=== PATIENT | male | born 1955 | race Caucasian/White ===

== ENCOUNTER 2023-02-07 02:18 | Emergency (ER) | payer MEDICARE, OTHER ==
[2023-02-07] MEDS ORDERED: MORPHINE 2 MG/ML CARPUJECT IVP STA (02:23)
--- NOTE | 2023-02-07 04:33 | ED Physician Documentation ---
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 Patient states that he has intermittent bouts of diarrhea and he was attempting to get out of bed to use the restroom, however he got out of bed too quickly and subsequently fell on the ground, landing on his buttocks. Denies hitting his head, denies loss of consciousness. Patient complained of significant lumbar back pain and 911 was called. Patient was placed on a backboard by EMS staff and c-collar was applied. On arrival patient denied head, neck, thoracic pain. C-collar removed. Review of Systems Constitutional: denies: Fever, Chills Cardiac: denies: Chest pain / pressure, Palpitations, Calf pain Respiratory: denies: Dyspnea, Cough, Wheezing GI: reports: Diarrhea (chronic). denies: Abdominal Pain, Nausea, Vomiting Musculoskeletal: reports: Back pain. denies: Neck pain, Extremity pain, Joint pain, Extremity swelling Neurologic: denies: Generalized weakness, Focal weakness, Numbness, Syncope, Headache, Head injury PD PAST MEDICAL HISTORY - Allergies Allergies/Adverse Reactions: Allergies Allergy/AdvReac Type Severity Reaction Status Date / Time baclofen Allergy Unknown Verified 02/07/23 02:27 PD ED PE NORMAL - Vitals Vital signs reviewed: Yes - General General: Alert and oriented X 3, No acute distress, Well developed/nourished, Other (frail) - HEENT HEENT: Atraumatic, PERRL - Neck Neck: Supple, no meningeal sign, No bony TTP, C-Spine cleared by NEXUS criteria - Cardiac Cardiac: RRR, Strong equal pulses - Respiratory Respiratory: No respiratory distress, Clear bilaterally - Abdomen Abdomen: Soft, Non tender, Non distended - Back Back: No CVA TTP, Other (Lumbar midline tenderness) - Derm Derm: Normal color, Warm and dry, No rash - Extremities Extremities: No deformity, No tenderness to palpate - Neuro Neuro: Alert and oriented X 3, 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 Patient does have previous history of spinal fusion in his lumbar back. Patient states that he was about to have an episode of diarrhea, this is chronic for the patient and not a new issue for him. Patient was removed from backboard and c-collar cleared by myself, c-collar subsequently removed. CT imaging negative for acute findings. Patient's pain is well controlled. Patient was informed of CT results, he is relieved to know that there are no fra ctures and his hardware is intact. He called his for transport, who arrived to take him home in stable condition. Prior to leaving the emergency department patient asked what could possibly be done for his chronic intermittent diarrhea. I recommended Imodium, however patient stated that Imodium does not help him and his primary care doctor seems to be at a loss for why his diarrhea cannot be controlled. I recommended that the patient talk to his primary care doctor about potentially being referred to a route specialist. Departure - Departure Disposition: 01 Home, Self Care Clinical Impression: Lumbar pain Fall from bed Qualifiers: Encounter type: initial encounter Qualified Code(s): W06.XXXA - Fall from bed, initial encounter Condition: Stable Instructions: ED Low Back Pain Injury Comments: talk to your primary care doctor about possibly seeing a GI doctor for your recurrent diarrhea Forms: PCP List
[2023-02-07 04:43] VITALS: BP 164/84; O2SAT 99
--- NOTE | 2023-02-07 09:20 | CT Report ---
PROCEDURE: LUMBAR SPINE WO INDICATIONS: FALL OUT OF BED/LUMBAR PAIN TECHNIQUE: Noncontrast 3 mm thick sections acquired from the T12 level to the sacrum. Sagittal and coronal refo rmats were constructed. For radiation dose reduction, the following was used: automated exposure co ntrol, adjustment of mA and/or kV according to patient size. COMPARISON: None. FINDINGS: Image quality: There is limited visualization of the spine secondary to artifact from fusion hardwar e. Multilevel foraminal narrowing is present most severe at L2-3, L4-5, L5-S1. Facet and ligamentum f lavum arthropathy are present. Bones: There is posterior fusion from L1 through S2. Hardware is intact without evidence of hardware fracture or periprosthetic lucency to suggest loosening. Intervertebral spacer/prosthetic discs are present L3-4, L4-5 and L5-S1. There is 4 mm retrolisthesis of L5 on S1. Secondary to retrolisthesis, 4 mm of the anterior aspect of the prosthetic discs at L5-S1 are anterior to the inferior endplate of L5. Multilevel scattered disc bulges are present. Soft tissues: No retroperitoneal masses or hematomas. Visualized aorta is normal in caliber. Diver ticulosis. IMPRESSION: Multilevel fusion appearing intact. No visualized osseous fractures. Multilevel degenerative changes. The above findings are concordant with preliminary report. Reviewed by: Leonor Faith MD on 02/07/2023 9:19 AM PDT Approved by: Leonor Faith MD on 02/07/2023 9:19 AM PDT Station ID: [id number]
== END 2023-02-07 05:26 | disposition home or self-care (01) ==
LOC: ED 02:18
DX: M54.50 Low back pain, unspecified (principal); W06.XXXA Fall from bed, initial encounter
CPT/HCPCS: 96374; 99283